=== PATIENT | female | born 1970 | race Hispanic/Latino ===

== ENCOUNTER 2021-05-10 14:36 | Emergency (ER) | payer SELFPAY ==
[~2021-05-10] VITALS: Ht 152.4 cm; Wt 81.6 kg
[2021-05-10 14:38] VITALS: BP 118/83
[2021-05-10] MEDS ORDERED: ACETAMINOPHEN WITH CODEINE 1 TAB TAB PO ONE (15:30)
[2021-05-10] MEDS ORDERED: D-ME1POW16 PO (15:32)
[2021-05-10] MEDS ORDERED: IVER3TAB PO (15:32)
[2021-05-10] MEDS ORDERED: ALBU8.5H8 IH (15:32)
[2021-05-10] MEDS ORDERED: ACETAMINOPHEN WITH CODEINE 1 TAB TAB ONE (15:45)
== END 2021-05-10 16:05 | disposition home or self-care (01) ==
LOC: EDH 14:36
DX: U07.1 COVID-19 (principal); J06.9 Acute upper respiratory infection, unspecified; Z79.899 Other long term (current) drug therapy
CPT/HCPCS: 87635; 87804 ×2; 99283; C9803